=== PATIENT | female | born 1975 | race Caucasian/White ===

== ENCOUNTER 2017-08-07 06:24 | Day surgery (SDC) | payer MEDICARE, MEDICAID ==
[2017-08-04 15:43] LABS: Basophils # (auto) 0.2 uL; Basophils % (auto) 1.1 % (0.0-2.0); Eosinophils # (auto) 0.2 uL; Eosinophils % (auto) 1.4 % (0.0-7.0); Hematocrit 43.9 % (36.0-46.0); Hemoglobin 14.5 g/dL (12.2-16.2); Lymphocytes # (auto) 2.5 uL; Lymphocytes % (auto) 16.8 % (10.0-50.0); Mean Corpuscular Hemoglobin 27.3 pg (28.0-32.0); Mean Corpuscular Volume 82.9 fL (80.0-100.0); Monocytes # (auto) 0.7 uL; Neutrophils # (auto) 11.3 uL; Neutrophils % (auto) 75.7 % (37.0-80.0); Nucleated Red Blood Cells % 0.1 %; Platelet Count (auto) 428 10^3/uL (140-450); Red Cell Distribution Width 13.4 % (11.8-14.3); White Blood Cell 14.9 10^3/uL (4.4-10.8)
[2017-08-04 15:55] LABS: INR 0.89 (0.9-1.15); Partial Thromboplastin Time 25.9 sec (22.64-33.71); Prothrombin Time 9.7 sec (9.37-12.3)
[2017-08-04 16:05] LABS: BUN/Creatinine Ratio 17.7; Calcium 8.9 mg/dL (8.5-10.1); Potassium 4.2 mmol/L (3.5-5.1)
[~2017-08-07] VITALS: Ht 157.5 cm; Wt 81.6 kg
[~2017-08-07 06:24] MED LIST: METO50TA7 PO; TRAM50TA2 PO
[2017-08-07] MEDS ORDERED: CONJ ESTROGENS 0.625MG/GM VAG CRM 30GM PV ONE (06:51)
[2017-08-07] MEDS ORDERED: BUPIVACAINE W/ EPINEPH 0.25% INJ 50ML MDV ONE (06:51)
[2017-08-07] MEDS ORDERED: LIDOCAINE 1% HCL (LOCAL ANESTH.) INJ 20ML MDV ONE (06:51)
[2017-08-07] MEDS ORDERED: BUPIVACAINE 0.25% INJ 50ML VIAL ONE (06:51)
[2017-08-07] MEDS ORDERED: ceFAZolin 1GM VL ONE (06:51)
[2017-08-07] MEDS ORDERED: ceFAZolin 1GM/50ML 50 ML IV ONE (07:48)
[2017-08-07] MEDS ORDERED: MIDAZOLAM HCL 1MG/1ML-2 ML VIAL ONE (07:59)
[2017-08-07] MEDS ORDERED: fentaNYL CITRATE 100 MCG/2 ML VL ONE (07:59)
[2017-08-07] MEDS ORDERED: DEXAMETHASONE SOD PHOS 10MG/1ML VIAL INJ ONE (07:59)
[2017-08-07] MEDS ORDERED: PROPOFOL 10 MG/ML 20 ML IV ONE (08:07)
[2017-08-07] MEDS ORDERED: METOCLOPRAMIDE HCL 5MG/ml INJ 2ml VIAL ONE (08:15)
[2017-08-07] MEDS ORDERED: KETOROLAC TROMETH 30 MG/ML 1ML VIAL ONE (08:35)
[2017-08-07] MEDS ORDERED: MIDAZOLAM HCL 1MG/1ML-2 ML VIAL IV PRN (08:45)
[2017-08-07] MEDS ORDERED: ePHEDrine SULFATE 50 MG/ML AMP IV PRN (08:45)
[2017-08-07] MEDS ORDERED: MORPHINE SULFATE 4 MG/ML SYR/VIAL IV PRN (08:45)
[2017-08-07] MEDS ORDERED: ONDANSETRON HCL 4 MG/2 ML VIAL IV ONE (08:45)
[2017-08-07] MEDS ORDERED: KETOROLAC TROMETH 30 MG/ML 1ML VIAL IV ONE (08:45)
[2017-08-07] MEDS ORDERED: ACCU-CHEK COMFORT CURVE STRIP VI ONE (08:45)
[2017-08-07] MEDS ORDERED: HYDROmorphone HCL 2 MG/ML VL IV PRN (08:45)
[2017-08-07] MEDS ORDERED: LABETALOL HCL 5 MG/ML 4ML SYRINGE IV PRN (08:45)
[2017-08-07] MEDS ORDERED: fentaNYL CITRATE 100 MCG/2 ML VL IV ONE (09:00)
[2017-08-07 09:36] VITALS: BP 132/85
[2017-08-07] MEDS ORDERED: MORPHINE SULFATE 4 MG/ML SYR/VIAL IV ONE (10:00)
== END 2017-08-07 09:50 | disposition home or self-care (01) ==
LOC: SUR 06:24
PROVIDERS: ATTEND Obstetrics & Gynecology
DX: N36.42 Intrinsic sphincter deficiency (ISD) (principal); D69.6 Thrombocytopenia, unspecified; Z88.0 Allergy status to penicillin; Z88.8 Allergy status to other drugs, medicaments and biological substances; I10 Essential (primary) hypertension; E66.9 Obesity, unspecified; Z68.32 Body mass index [BMI] 32.0-32.9, adult; Z90.710 Acquired absence of both cervix and uterus
CPT/HCPCS: 36415; 52287; 74018; 76000; 80048; 82962; 85025; 85610; 85730; J0690; J1100; J1885; J2001; J2250; J2405; J2704; J2765; J3010; L8606; J3490

== ENCOUNTER 2022-12-26 09:14 | Day surgery (SDC) | payer MEDICARE, MEDICAID ==
[2022-12-20 13:07] LABS: Basophils # (auto) 0.1 10 ^3/uL (0-0.2); Basophils % (auto) 0.7 % (0.0-2.0); Eosinophils # (auto) 0.2 10 ^3/uL (0-0.8); Eosinophils % (auto) 1.3 % (0.0-7.0); Hematocrit 40.3 % (36.0-46.0); Hemoglobin 13.5 g/dL (12.2-16.2); Lymphocytes # (auto) 2.3 10 ^3/uL (0.4-5.4); Lymphocytes % (auto) 18.4 % (10.0-50.0); Mean Corpuscular Hemoglobin 27.1 pg (28.0-32.0); Mean Corpuscular Hgb Conc. 33.4 g/dL (32.0-36.0); Mean Corpuscular Volume 81.3 fL (80.0-100.0); Monocytes # (auto) 0.7 10 ^3/uL (0-1.3); Monocytes % (auto) 5.8 % (0.0-12.0); Neutrophils # (auto) 9.4 10 ^3/uL (1.6-8.6); Neutrophils % (auto) 73.8 % (37.0-80.0); Nucleated Red Blood Cells % 0.1 %; Red Blood Cells 4.96 10^6/uL (4.0-5.20); Red Cell Distribution Width 13.3 % (11.8-14.3); White Blood Cell 12.7 10^3/uL (4.4-10.8)
[2022-12-20 13:10] LABS: Urine Bacteria FEW /hpf (None Seen); Urine Blood Negative /uL (Negative); Urine WBC 11 /hpf (0 - 5)
[2022-12-20 13:34] LABS: INR 0.98 (0.9-1.15); Partial Thromboplastin Time 28.2 SEC (24.5-34.5)
[2022-12-20 14:25] LABS: Albumin 3.4 g/dL (3.4-5.0); Calcium 9.1 mg/dL (8.5-10.1); Potassium 3.8 mmol/L (3.5-5.1)
[2022-12-20 14:28] LABS: BUN/Creatinine Ratio 23.6 (10.0-20.0); Bilirubin, Total 0.2 mg/dL (0.2-1.0); Total Protein 7.3 g/dL (6.4-8.2)
[~2022-12-26] VITALS: Ht 157.5 cm; Wt 94.3 kg
[~2022-12-26 09:14] MED LIST changes: +ATO40T PO; +FENO1TAB41 PO; +INSLANTI SC; +INSU100I55 IJ; +METO-6 PO; -METO50TA7 PO
[2022-12-26] MEDS ORDERED: ONDANSETRON HCL 4 MG/2 ML VIAL ONE (10:23)
[2022-12-26] MEDS ORDERED: MIDAZOLAM HCL 2MG/2ML 2ml VIAL (1mg/ml) ONE (10:39)
[2022-12-26] MEDS ORDERED: fentaNYL CITRATE 100 MCG/2 ML VL ONE (10:39)
[2022-12-26] MEDS ORDERED: CIPROFLOXACIN 400MG/200ML 200 ML IV ONE (10:41)
[2022-12-26] MEDS ORDERED: SUCCINYLCHOLINE CHLORIDE 20 MG/ML 10ML VIAL IV ONE (10:41)
[2022-12-26] MEDS ORDERED: GENTAMICIN SULFATE 2 ML ONE (10:42)
[2022-12-26] MEDS ORDERED: PROPOFOL 10 MG/ML 20 ML IV ONE (11:24)
[2022-12-26] MEDS ORDERED: LIDOCAINE 2% (LOCAL ANESTH.) PF 5ml SDV ONE (11:24)
[2022-12-26] MEDS ORDERED: ROCURONIUM 10MG/ML 10ML VIAL IV ONE (11:55)
[2022-12-26] MEDS ORDERED: ONDANSETRON HCL 4 MG/2 ML VIAL IV PRN (12:15)
[2022-12-26] MEDS ORDERED: HYDROmorphone HCL 2 MG/ML VL/or syr IV PRN (12:15)
[2022-12-26 13:07] VITALS: BP 99/64
== END 2022-12-26 13:09 | disposition home or self-care (01) ==
LOC: SUR 09:14
PROVIDERS: ATTEND Urology
DX: N36.43 Combined hypermobility of urethra and intrinsic sphincter deficiency (principal); N31.8 Other neuromuscular dysfunction of bladder; N39.3 Stress incontinence (female) (male); N32.81 Overactive bladder
CPT/HCPCS: 36415; 51715; 74018; 76000; 80053; 81001; 82962; 85025; 85610; 85730; 87086; J0330; J0744; J1580; J2001; J2250; J2405; J2704; J3010; L8606